=== PATIENT | female | born 1960 | race Caucasian/White ===

== ENCOUNTER 2017-11-14 19:34 | Emergency (ER) | END 2017-11-14 23:21 | disposition home or self-care (01) ==

== ENCOUNTER 2017-11-20 11:21 | Inpatient (IN) | END 2017-11-26 21:02 | disposition home or self-care (01) | DRG 252 ==

== ENCOUNTER 2017-12-08 14:22 | Emergency (ER) | END 2017-12-08 16:33 | disposition home or self-care (01) ==

== ENCOUNTER 2018-01-03 09:28 | Inpatient (IN) | END 2018-01-05 17:25 | disposition home health service (06) | DRG 252 ==

== ENCOUNTER 2018-01-22 14:19 | Inpatient (IN) | END 2018-01-27 20:05 | disposition home health service (06) | DRG 264 ==

== ENCOUNTER 2018-02-02 21:05 | Inpatient (IN) | END 2018-02-06 16:25 | disposition home health service (06) | DRG 314 ==